=== PATIENT | male | born 1950 | race Caucasian/White ===

== ENCOUNTER 2017-01-09 11:01 | Emergency (ER) | payer MEDICARE ==
[2017-01-09 12:29] VITALS: BP 189/101
--- NOTE | 2017-01-17 15:24 | UC ---
Casa Duarte Claudia, scribed for Sheyla Garcia MD on 01/09/17 at 1200 . Abdominal Pain Male HPI - HPI Summary HPI Summary: 66 year old male presents to the ED with intermittent episodic diffuse abd pain but increased tenderness to the LLQ, LUQ. Pt notes the pain as a cramping pain. Pt notes associated sx as constipation. He denies any fever chills, N/V/D. Pt notes sudden onset of pain about 6 days ago when he was awoken in the middle of the night. The sx have persisted and become more constant. Pt saw his PCP on which recommended Miralax and Prune Juice which have done little to alleviate his Sx. Pt did an enema at home last night with some relief however he was awoken at 0415 this am with the persistent pain. Pt tried to perform another enema this am with no results and no reliefs. Pt denies any loss of appetite. It is also noted that he has not taken his HTN Rx for the past two days. - History of Current Complaint Chief Complaint: UCAbdominalPain Stated Complaint: ABDOMINAL PAIN Time Seen by Provider: 01/09/17 11:53 Hx Obtained From: Patient Onset/Duration: Sudden Onset, Still Present Location: Diffuse Radiates: No Character: Cramping Aggravating Factor(s):: Nothing Alleviating Factor(s): Nothing Associated Signs And Symptoms: Positive: Constipation. Negative: Fever, Nausea , Vomiting - Allergies/Home Medications Allergies/Adverse Reactions: Allergies Allergy/AdvReac Type Severity Reaction Status Date / Time No Known Allergies Allergy Verified 01/12/17 11:37 Home Medications: Home Medications Bimatoprost 0.01% OPHTH (NF) [Lumigan 0.01% OPHTH (NF)] 1 drop DAILY 01/09/17 [ History Confirmed 01/12/17] Dorzolamide 2% OPTH (NF) [Trusopt 2% OPTH (NF)] 1 drop DAILY 01/09/17 [History Confirmed 01/12/17] PMH/Surg Hx/FS Hx/Imm Hx Previously Healthy: Yes Cardiovascular History Of: Reports: Hypertension Denies: Pacemaker/ICD - Surgical History Surgical History: None - Family History Known Family History: Positive: Hypertension - Social History Occupation: Employed Full-time Lives: With Family Alcohol Use: Daily Substance Use Type: Marijuana Smoking Status (MU): Former Smoker When Did the Patient Quit Smoking/Using Tobacco: several yrs ago Review of Systems Constitutional: Negative, Other - no fever chills Skin: Negative Eyes: Negative ENT: Negative Respiratory: Negative Cardiovascular: Negative Gastrointestinal: Abdominal Pain - diffuse abd tenderness, no focal r/g. + bs. Soft. No cvat, Other - constipation Genitourinary: Negative Motor: Negative Neurovascular: Negative Musculoskeletal: Negative Neurological: Negative Psychological: Negative All Other Systems Reviewed And Are Negative: Yes Physical Exam Triage Information Reviewed: Yes Appearance: Well-Nourished - uncomfortable during PE Vital Signs: Initial Vital Signs Temp 97.5 F 01/09/17 11:17 Pulse 55 01/09/17 11:17 Resp 18 01/09/17 11:17 BP 164/103 01/09/17 11:17 Pulse Ox 97 01/09/17 11:17 Vital Signs Reviewed: Yes Eye Exam: Normal ENT Exam: Normal Neck exam: Normal Respiratory Exam: Normal Respiratory: Positive: Chest non-tender, Lungs clear, Normal breath sounds Cardiovascular Exam: Normal Cardiovascular: Positive: RRR, No Murmur, Pulses Normal, Brisk Capillary Refill Abdominal Exam: Normal Abdomen Description: Positive: Nontender, No Organomegaly, Soft Musculoskeletal Exam: Normal Musculoskeletal: Positive: Strength Intact Neurological Exam: Normal Psychological Exam: Normal Skin Exam: Normal Abd Pain Male Course/Dx - Course Course Of Treatment: Reviewed urine dip with pt. D/w pt - reviewed the need for further eval and tx in ED. He expresses understanding and agreement. EMS encouraged, he declines. Will go to ED pov ([facility] for ems). I spoke with ED. - Differential Dx/Clinical Impression Provider Diagnoses: Acute abd pain Discharge - Discharge Plan Condition: Stable Disposition: AGAINST MEDICAL ADVICE Discharge Disposition Comment: Transferred to [facility] ED via car Referrals: Adolfo Ramirez MD [Primary Care Provider] - The documentation as recorded by the Casa lockwood Claudia accurately reflects the service I personally performed and the decisions made by me, Sheyla Garcia MD.
== END 2017-01-10 12:36 | disposition left against medical advice (07) ==
LOC: UCEAST 11:01
DX: R10.32 Left lower quadrant pain (principal); R10.12 Left upper quadrant pain; K59.00 Constipation, unspecified; F12.90 Cannabis use, unspecified, uncomplicated; Z87.891 Personal history of nicotine dependence
CPT/HCPCS: 81002; 87086; 99212; G0463

== ENCOUNTER 2017-01-09 12:50 | Emergency (ER) | payer MEDICARE ==
[2017-01-09] MEDS ORDERED: Ondansetron INJ* 2 MG/ML VIAL IV ONE (14:26)
[2017-01-09] MEDS ORDERED: NS 0.9% 1000 ML* 1,000 ML IV ONE (14:26)
[2017-01-09 14:38] LABS: Hematocrit 46 % (42-52); Hemoglobin 15.1 g/dl (14.0-18.0); Mean Corpuscular HGB Conc 33 g/dl (31-36); Mean Corpuscular Hemoglobin 29 pg (27-31); Mean Corpuscular Volume 88 fL (80-94); Mean Platelet Volume 9 um3 (7.4-10.4); Red Blood Count 5.18 10^6/ul (4.0-5.4); Red Cell Distribution Width 13 % (10.5-15); White Blood Count 11.1 10^3/ul (3.5-10.8)
[2017-01-09 14:53] LABS: Albumin 4.2 g/dL (3.2-5.2); BUN/Creatinine Ratio 14.4 (8-20); C Reactive Protein 34.29 mg/L (< 5.00); Calcium 9.3 mg/dL (8.6-10.3); EGFR African American 65.4 (>60); EGFR Non-African American 50.8 (>60); Potassium 3.4 mmol/L (3.5-5.0); Total Bilirubin 0.9 mg/dL (0.2-1.0); Total Protein 7.2 g/dL (6.4-8.9)
[2017-01-09] MEDS ORDERED: Iodixanol* (CONTRAST) 320 MG/ML 100 ML SDV IV ONE (15:03)
[2017-01-09 16:35] LABS: Urine Bacteria Absent (Absent); Urine Bilirubin Negative (Negative); Urine Glucose Negative (Negative); Urine Nitrite Negative (Negative)
--- NOTE | 2017-01-09 17:28 | RAD ---
CLINICAL HISTORY: Abdominal pain COMPARISON: None TECHNIQUE: Contrast enhanced CT examination of the abdomen and pelvis from the lung bases through the initial tuberosities. The patient received 100 mL Visipaque 320 intravenously prior to imaging.The patient received oral contrast as well prior to imaging. FINDINGS: VISUALIZED LUNG BASES: Pleural-based linear density at the left lower lobe and to a lesser extent the right lower lobe is most consistent with atelectasis. Otherwise the visualized lung bases are grossly clear. There is no pleural effusion. ABDOMEN AND PELVIS: The liver, spleen and adrenal glands are grossly normal in appearance. There is mild dilatation of the proximal portion of the main pancreatic duct up to 4 mm in diameter. This main pancreatic duct is seen to communicate with the common bile duct before making a junction with the second portion the duodenum. There is the appearance of a small accessory pancreatic duct (image 32 of 96). There are no suspicious pancreatic masses or surrounding inflammatory change of the ankle wrist. The gallbladder is normal. The right kidney is normal in appearance without focal mass, calcification or signs of hydronephrosis. At the proximal portion of the left ureter just beyond the ureteropelvic junction there is a 5 mm calcification (coronal image 55 of 116). At the mid-level ureter there is a more elongated calcification measuring 1 cm in length (image 45 of 96). There is moderate left-sided hydronephrosis and moderate perinephric stranding. There are at least 2 additional left ureteral calculi, the larger stone at the lower pole measuring 8 mm in greatest dimension. The delayed phase imaging shows no excretion of contrast in the left renal collecting system. The oral contrast has progressed as far as the ankle joint. The small and large bowel are not distended. The patient's normal appendix is identified in the right lower quadrant (coronal image 49 of 116). There is questionable and mild wall thickening of portions of the descending colon. Furthermore the distal colon appears to be filled with liquid stool. There is no gross retroperitoneal or mesenteric lymphadenopathy. The prostate gland measures 4.4 x 4.8 cm in the axial plane and 4.4 cm in the cephalocaudal projection and exhibits compression on the trigone of the urinary bladder. There are scattered coarse calcifications in the gland. The abdominal aorta and iliac arteries are normal in course and diameter. Degenerative changes include multilevel loss of intervertebral disc height involving the lower thoracic and lumbar spine as well as vacuum disc phenomenon at the lower lumbar spine.There are no sinister bone lesions. IMPRESSION: 1. There are 2 large renal calculi in the proximal and mid level left ureter measuring 5 and 10 mm, respectively, in greatest dimension with ipsilateral moderate hydronephrosis and perinephric stranding. Delayed phase imaging shows delayed excretion in the left kidney. 2. CT findings likely represent a bifid configuration of the pancreatic duct with a dominant duct of [place] drainage. If clinically relevant this can be further characterized with MRCP. 3. There is questionable thickening of the descending colon and the distal colon appears to be filled with liquid stool. 4. There are additional chronic and degenerative findings described in the body the report.
[2017-01-09] MEDS ORDERED: Ketorolac INJ* 30 MG/ML 1 ML VIAL IV PUSH ONE (17:34)
[2017-01-09] MEDS ORDERED: Polyethylene Glycol 3350 BTL* 238 GM BTL PO ONE (17:34)
[2017-01-09 17:35] VITALS: BP 161/87
[2017-01-09] MEDS ORDERED: Magnesium CITRATE* 300 ML BTL PO ONE (17:35)
[2017-01-09] MEDS ORDERED: Tamsulosin CAP* 0.4 MG PO ONE (17:38)
--- NOTE | 2017-01-09 18:05 | ED ---
Adina Duarte Michael, scribed for Elliott Gutierrez MD on 01/09/17 at 1418 . Abdominal Pain/Male - HPI Summary HPI Summary: 66 y/o male comes to the ED presenting with intermittent episodes of abd pain that started diffusely and has localized to the LLQ within the past 6 days. The pt reports that he has been constipated for the past 6 days, and his last BM was one day ago, which alleviated the pain until 0400 this morning. This the pain returned, the pt has not been able to alleviate the pain with fleet enema. He also c/o chills and denies fever and n/v/d. - History of Current Complaint Chief Complaint: EDAbdPain Stated Complaint: ABD PAIN Time Seen by Provider: 01/09/17 14:05 Hx Obtained From: Patient, Medical Records Onset/Duration: Sudden Onset, Still Present Timing: Intermittent Severity Initially: Moderate Severity Currently: Moderate Pain Intensity: 7 Pain Scale Used: 0-10 Numeric Location: Discrete At: LLQ Radiates: No Aggravating Factor(s): Nothing Alleviating Factor(s): Nothing Associated Signs And Symptoms: Positive: Other - chills. Negative: Fever, Nausea, Vomiting, Diarrhea - Allergies/Home Medications Allergies/Adverse Reactions: Allergies Allergy/AdvReac Type Severity Reaction Status Date / Time No Known Allergies Allergy Verified 01/09/17 11:14 PMH/Surg Hx/FS Hx/Imm Hx Cardiovascular History: Reports: Hx Hypertension Denies: Hx Pacemaker/ICD Sensory History: Denies: Hx Hearing Aid Psychiatric History: Denies: Hx Panic Disorder Infectious Disease History: No Infectious Disease History: Denies: Hx Clostridium Difficile, Hx Hepatitis, Hx Human Immunodeficiency Virus (HIV), Hx of Known/Suspected MRSA, Hx Shingles, Hx Tuberculosis, Hx Known/ Suspected VRE, Hx Known/Suspected VRSA, History Other Infectious Disease, Traveled Outside the [place] in Last 30 Days - Family History Known Family History: Positive: None Family History: pt denies a significant FHx - Social History Occupation: Employed Full-time Lives: With Family Alcohol Use: Daily Substance Use Type: Reports: Marijuana Smoking Status (MU): Former Smoker Review of Systems Positive: Chills. Negative: Fever Positive: Abdominal Pain. Negative: Vomiting, Diarrhea, Nausea All Other Systems Reviewed And Are Negative: Yes Physical Exam - Summary Physical Exam Summary: VITAL SIGNS: Reviewed. GENERAL: Patient is a well developed and nourished male who is lying comfortable in the stretcher. Patient is not in any acute respiratory distress. HEAD AND FACE: Normocephalic and atraumatic. EYES: PERRLA, EOMI x 2, No injected conjunctiva. EARS: Hearing grossly intact. Ear canals and tympanic membranes are WNL. MOUTH: Oropharynx within normal limits. NECK: Supple, trachea is midline, no adenopathy, no JVD. CHEST: Symmetric, no tenderness at palpation LUNGS: Clear to auscultation bilaterally. No wheezing or crackles. CVS: RRR,, S1 and S2 present, no murmurs or gallops appreciated. ABDOMEN: Soft, Positive LLQ tenderness. No signs of distention. Positive bowel sounds. No rebound no guarding, and no masses palpated. No abdominal bruit or pulsations. EXTREMITIES: FROM in all major joints, no edema, no cyanosis or clubbing. NEURO: Alert and oriented x 3. No acute neurological deficits. Speech is normal. SKIN: Dry and warm Triage Information Reviewed: Yes Vital Signs On Initial Exam: Initial Vitals Temp Pulse Resp BP Pulse Ox 98.3 F 57 16 183/104 98 01/09/17 12:51 01/09/17 12:51 01/09/17 12:51 01/09/17 12:51 01/09/17 12:51 Vital Signs Reviewed: Yes Diagnostics - Vital Signs Vital Signs Temp Pulse Resp BP Pulse Ox 01/09/17 14:10 99.1 F 54 16 172/95 97 01/09/17 12:51 98.3 F 57 16 183/104 98 - Laboratory Lab Results: Lab Results 01/09/17 Range/Units 14:25 WBC 11.1 H (3.5-10.8) 10^3/ul RBC 5.18 (4.0-5.4) 10^6/ul Hgb 15.1 (14.0-18.0) g/dl Hct 46 (42-52) % MCV 88 (80-94) fL MCH 29 (27-31) pg MCHC 33 (31-36) g/dl RDW 13 (10.5-15) % Plt Count 156 (150-450) 10^3/ul MPV 9 (7.4-10.4) um3 Neut % (Auto) 79.5 (38-83) % Lymph % (Auto) 8.3 L (25-47) % [place] % (Auto) 11.1 H (1-9) % Eos % (Auto) 0 (0-6) % Baso % (Auto) 1.1 (0-2) % Absolute Neuts (auto) 8.8 H (1.5-7.7) 10^3/ul Absolute Lymphs (auto) 0.9 L (1.0-4.8) 10^3/ul Absolute Monos (auto) 1.2 H (0-0.8) 10^3/ul Absolute Eos (auto) 0 (0-0.6) 10^3/ul Absolute Basos (auto) 0.1 (0-0.2) 10^3/ul Absolute Nucleated RBC 0.01 10^3/ul Nucleated RBC % 0 Result Diagrams: 01/09/17 14:25 01/09/17 14:25 Lab Statement: Any lab studies that have been ordered have been reviewed, and results considered in the medical decision making process. - CT CT ABD/PEL CT Interpretation: Positive (See Comments) - 1. There are 2 large renal calculi in the proximal and mid level left ureter measuring 5 and 10 mm, respectively, in greatest dimension with ipsilateral moderate hydronephrosis and perinephric stranding. Delayed phase imaging shows delayed excretion in the left kidney. 2. CT findings likely represent a bifid configuration of the pancreatic duct with a dominant duct of [place] drainage. If clinically relevant this can be further characterized with MRCP. 3. There is questionable thickening of the descending colon and the distal colon appears to be filled with liquid stool. 4. There are additional chronic and degenerative findings described in the body the report. CT Interpretation Completed By: Radiologist - EKG EK EKG Rhythm: Sinus Bradycardia - 53 bpm EKG Interpretation: no st elevation Re-Evaluation - Re-Evaluation 1 Re-Evaluation Time: 18:02 Change: Improved Comment: Discussing results. Pt stated feeling much better. Will f/u with urology. Abdominal Pain Fem Course/Dx - Course Assessment/Plan: 66 y/o male comes to the ED presenting with intermittent episodes of abd pain that started diffusely and has localized to the LLQ within the past 6 days. The pt reports that he has been constipated for the past 6 days , and his last BM was one day ago, which alleviated the pain until 0400 this morning. This the pain returned, the pt has not been able to alleviate the pain with fleet enema. He also c/o chills and denies fever and n/v/d. Blood work shows an increased WBCs 11.1 w/o bands, Potassium 3.4, creatinine 1.39 and glucose 115. CRP 34.2 and UA negative for UTI. Abdominal and Pelvic CT IMPRESSION: 1. There are 2 large renal calculi in the proximal and mid level left ureter measuring 5 and 10 mm, respectively, in greatest dimension with ipsilateral moderate hydronephrosis and perinephric stranding. Delayed phase imaging shows delayed excretion in the left. kidney. 2. CT findings likely represent a bifid configuration of the pancreatic duct with a dominant duct of [place] drainage. If clinically relevant this can be further. characterized with MRCP. 3. There is questionable thickening of the descending colon and the distal colon appears to be filled with liquid stool. 4. There are additional chronic and degenerative findings described in the body the report. In the Ed course he was given IV fluids. He was given toradol and flomax for the kidney stones . He was given miralax, magnesium citrate and lactulose for the constipation to take at home if needed. He reports he will needed since he has not havea good BM in the last 7 days. After medication patient is feeling better. He reports no pain. He will be given prescriptions for pain medication and f/u with PMD and Urology. I discussed all the findings and test results with the patient. Patient was instructed to return to the emergency room immediately if any of the symptoms return or worsens. Plan of care was discussed with the patient and understands and agrees. All questions were answered at patient satisfaction. There were no further complaints or concerns. P/E: Lungs: CTA B/L. Good air exchange. No wheezing or crackles heard. CVS: S1 and S2 present. No murmurs appreciated. Patient is alert and oriented x 3. Patient is hemodynamically stable. Patient will be discharged home with follow up PMD in the next 2-3 days - Diagnoses Differential Diagnosis/HQI/PQRI: Bowel Obstruction, Constipation, Diverticulitis , Pancreatitis, Ureteral Stone Provider Diagnoses: Constipation, Kidney stones Discharge - Discharge Plan Condition: Stable Disposition: HOME Prescriptions: Ondansetron ODT TAB* [Zofran Odt TAB*] 4 mg PO Q6H PRN #10 tab.odt PRN Reason: Vomiting Tamsulosin CAP* [Flomax CAP*] 0.4 mg PO DAILY #10 cap oxyCODONE/Acetamin 5/325 MG* [Percocet 5/325 TAB*] 1 tab PO Q6H PRN #12 tab MDD max 4 tabs / day PRN Reason: Pain Patient Education Materials: Oxycodone/Acetaminophen (By mouth), Constipation ( ED), Kidney Stones (ED), Renal Colic (ED) Referrals: Adolfo Ramirez MD [Primary Care Provider] - Jerad Spears MD [Medical Doctor] - As Soon As Possible Additional Instructions: Follow up with Dr. Spears, urology, as soon as possible. If you experience new or worsening symptoms, return to the Emergency Department. The documentation as recorded by the Adina lockwood Michael accurately reflects the service I personally performed and the decisions made by , Elliott Gutierrez MD.
== END 2017-01-09 18:00 | disposition home or self-care (01) ==
LOC: ED 12:50
DX: K59.00 Constipation, unspecified (principal); N20.0 Calculus of kidney; R10.32 Left lower quadrant pain; Z87.891 Personal history of nicotine dependence
CPT/HCPCS: 36415; 74177; 80053; 81003; 81015; 82150; 83605; 83690; 85025; 86140; 93005; 96374; 96375; 99283; A9270-GY; J1885; J2405; Q9967

== ENCOUNTER 2017-01-12 11:29 | Day surgery (SDC) | payer MEDICARE ==
--- NOTE | 2017-01-11 17:03 | HP ---
DATE OF ADMISSION: 01/12/2017 - [facility] AGE: 66-year-old male. ADMITTING DIAGNOSES: 1. Left hydronephrosis. 2. Left ureteral calculi. 3. Left renal calculi. PLANNED PROCEDURE: Left ureteroscopy, possible laser and stent insertion (to be followed in the near future by shockwave lithotripsy). SURGEON: Dr. Fabio Hermosillo. HISTORY OF PRESENT ILLNESS: Toy Castaneda is a 66-year-old gentleman who had been evaluated in the emergency room with left flank pain and nausea. CT scan had revealed multiple left-sided calculi, including two calculi in the left ureter and two in the left kidney, along with left-sided hydronephrosis. He was started on Flomax 0.4 mg a day and continues to have episodic left flank pain. A follow-up ultrasound in my office revealed persistent left hydronephrosis with evidence of complete obstruction of the left ureter. He is being brought in for urgent left ureteroscopy and stent insertion, probably to be followed in the near future by shockwave lithotripsy of the additional left renal calculi. PAST MEDICAL HISTORY: Significant for: 1. Hypertension. 2. Lumbar stenosis. PAST SURGICAL HISTORY: Negative. MEDICATIONS ON ADMISSION: 1. Metoprolol 50 mg a day. 2. Amiloride 5 mg a day. 3. Amlodipine 5 mg daily. 4. Propecia 1.25 mg daily. 5. Aspirin 81 mg daily. 6. Eye drops. ALLERGIES: No known drug allergies. SMOKING HISTORY: He is a former smoker who quit 15 years ago and had an approximately 20 to 25 year smoking history prior to that. REVIEW OF SYSTEMS: He denies any chest pain or shortness of breath. There is no history of diabetes mellitus or any other major systemic illness. He is fairly active. PHYSICAL EXAMINATION GENERAL: Pleasant, middle-aged gentleman. VITAL SIGNS: Blood pressure 120/80, pulse 55 per minute, temperature 97.8, oxygen saturation 98 percent on room air. CARDIOVASCULAR: Regular rate and rhythm. S1, S2. LUNGS: Clear bilaterally. ABDOMEN: Soft with left flank tenderness. IMPRESSION: Wsemn-[id number]-cdmj-old gentleman with complete obstruction secondary to two calculi in the left ureter and two additional left renal calculi. PLAN: Planned procedure is left ureteroscopy, possible laser and stent insertion (to be followed in the near future by shockwave lithotripsy). CC: Dr. Adolfo Ramirez * [id number]/[facility] #: [id number] DAWN
[2017-01-12] MEDS ORDERED: Buffered Lidocaine 1% SYR 3ML* 3 ML/SYR SYRINGE INTRADERM ONE (12:08)
[2017-01-12] MEDS ORDERED: Famotidine IV* 10 MG/ML 2 ML (20 mg) IV ONE (12:08)
[2017-01-12] MEDS ORDERED: Famotidine IV* 10 MG/ML 2 ML (20 mg) ONE (12:11)
[2017-01-12] MEDS ORDERED: Gentamicin ADULT (*) 40 MG/ML VIAL ONE (12:24)
[2017-01-12] MEDS ORDERED: cefTRIAXone(*) 2 GM ADDV.VIAL IVPB ONE (12:25)
[2017-01-12] MEDS ORDERED: Midazolam* 1 MG/ML 5 ML VIAL (5 MG) ONE (12:29)
[2017-01-12] MEDS ORDERED: fentaNYL* 50 MCG/ML 2 ML VIAL (100 MCG VIAL) ONE (12:29)
[2017-01-12] MEDS ORDERED: KETAMINE HCL* 50 MG/ML 10 ML VIAL ONE (12:29)
[2017-01-12] MEDS ORDERED: Iohexol 180 (CONTRAST) 10 ML SDV IV ONE (12:44)
[2017-01-12] MEDS ORDERED: Dexamethasone IV* 4 MG/ML 1 ML (4 MG) ONE (13:29)
[2017-01-12] MEDS ORDERED: Ondansetron INJ* 2 MG/ML VIAL ONE (13:29)
[2017-01-12] MEDS ORDERED: Metoprolol Tartrate IV* 1 MG/ML 5 ML VIAL ONE (13:29)
[2017-01-12] MEDS ORDERED: Lidocaine 2% PF * 5 ML VIAL ONE (13:29)
[2017-01-12] MEDS ORDERED: Propofol* 10 MG/ML 20 ML BTL IV PUSH ONE (13:29)
[2017-01-12] MEDS ORDERED: fentaNYL* 50 MCG/ML 2 ML VIAL (100 MCG VIAL) IV PRN (14:15)
[2017-01-12] MEDS ORDERED: PROCHLORPERAZINE INJ 5 MG/ML 2 ML VIAL IV PRN (14:15)
[2017-01-12] MEDS ORDERED: oxyCODONE/Acetamin 5/325 MG* TAB PO PRN (14:15)
--- NOTE | 2017-01-12 14:38 | RAD ---
Amended report to correct patient account number. INDICATION: Left stent insertion. COMPARISON: Correlation is made with a prior CT of the abdomen and pelvis from January 09, 2017. TECHNIQUE: 10 seconds of intermittent fluoroscopic guidance were provided and 6 spot films of the abdomen were centered on the left side. FINDINGS: There is partial opacification of the left renal collecting system. Subsequently there is placement of a double-J stent catheter on the left side which demonstrates normal course. IMPRESSION: INTRAOPERATIVE CONTROL FILMS. CPT II Codes: 6045F MTDD
[2017-01-12] MEDS ORDERED: Tamsulosin CAP* 0.4 MG ONE (14:55)
[2017-01-12 15:25] VITALS: BP 149/100
--- NOTE | 2017-01-12 16:07 | RAD ---
INDICATION: Left-sided nephrolithiasis COMPARISON: CT January 09, 2017 TECHNIQUE: A single view of the abdomen is submitted. FINDINGS: Bones: There are no acute bony findings. Soft tissues: The soft tissues appear normal. The psoas margins are sharp. Bowel gas pattern: Normal Calcifications: There are multiple left renal calculi as described on the recent CT examination.. Other: Left ureteral stent in expected position. IMPRESSION: LEFT-SIDED NEPHROLITHIASIS. LEFT URETERAL STENT IN EXPECTED POSITION.
--- NOTE | 2017-01-13 14:13 | OP ---
DATE OF OPERATION: 01/12/17 - SDS DATE OF : [birth year] - AGE: 66 years, Male. SURGEON: Fabio Hermosillo MD ANESTHESIOLOGIST: Dr. Garner. ANESTHESIA: General. PRE-OP DIAGNOSES: 1. Left hydronephrosis. 2. Left ureteral calculi. 3. Left renal calculi. POST-OP DIAGNOSES: 1. Left hydronephrosis. 2. Left ureteral calculi. 3. Left renal calculi. 4. Prostate enlargement. OPERATIVE PROCEDURE: Cystoscopy, left retrograde pyelogram, left ureteroscopy, laser lithotripsy of left ureteral calculi and removal of calculus fragments, and and left stent insertion. COMPLICATIONS: None. STENT USED: 8-[place] stent, left ureter. INDICATIONS: Toy Castaneda is a 66-year-old gentleman who was evaluated for left flank pain. He was noted to have 2 obstructing calculi in the left ureter in addition to 2 calculi in the left kidney. He is now being brought in for management of the ureteral calculi and will require lithotripsy at a later date for the renal calculi. FINDINGS: 1. Normal-appearing urethra. 2. Markedly enlarged vascular prostate with a large median lobe component. 3. Normal-appearing bladder. 4. Left hydronephrosis with 2 calculi in left proximal ureter. DESCRIPTION OF PROCEDURE: After induction of general anesthesia, the patient was placed in dorsal lithotomy position. Sequential compression devices were in place and functioning. Initial cystoscopy revealed a normal-appearing urethra, a significantly enlarged prostate with a predominant median lobe component. The bladder was unremarkable. A guidewire was introduced into the left ureter. Retrograde pyelogram revealed left hydronephrosis. A 6-[place] semi -rigid ureteroscope was introduced under direct vision. The entire ureter was fairly narrow and the ureteroscope was advanced to the level of the proximal ureter just below the ureteropelvic junction, where 2 calculi were noted, one on top of the other. The more distal calculus was first fragmented with 550 micron Holmium laser and all of the fragments were removed. Next, the second calculus was grasped and brought lower into the ureter and then laser lithotripsy of this was also carried out. All the sizable fragments were removed and an 8- [place] stent was introduced and positioned under fluoroscopy with good proximal and distal positioning obtained. The plan is to bring him back sometime in the next couple of weeks for shock wave lithotripsy of the renal calculi prior to any stent removal. The patient tolerated the procedure satisfactorily and was transferred back to the recovery area in stable condition. CC: Adolfo Ramirez MD; Fabio Hermosillo MD * [id number]/[facility] #: [id number] MTDD
== END 2017-01-12 15:45 | disposition home or self-care (01) ==
LOC: OR 11:29
PROVIDERS: ATTEND Urology
DX: N13.2 Hydronephrosis with renal and ureteral calculous obstruction (principal); Z87.891 Personal history of nicotine dependence; I10 Essential (primary) hypertension
CPT/HCPCS: 74000; 74420; 82365; 88300; C1876; J0696; J1100; J1580; J2250; J2405; J2704; J3010; J3490

== ENCOUNTER 2017-01-24 10:22 | Day surgery (SDC) | payer MEDICARE ==
[~2017-01-24 10:22] MED LIST: Buffered Lidocaine 1% SYR 3ML* 3 ML/SYR SYRINGE INTRADERM ONE; Dexamethasone IV* 4 MG/ML 1 ML (4 MG) IV SLOW PU ONE; DiMENhydriNATE IV* 50 MG/ML VIAL IV PUSH PRN; Famotidine IV* 10 MG/ML 2 ML (20 mg) IV ONE; Midazolam* 1 MG/ML 2 ML VIAL (2 MG) ONE; Ondansetron INJ* 2 MG/ML VIAL IV PRN; PROCHLORPERAZINE INJ 5 MG/ML 2 ML VIAL IV PRN; fentaNYL* 50 MCG/ML 2 ML VIAL (100 MCG VIAL) IV PRN; fentaNYL* 50 MCG/ML 2 ML VIAL (100 MCG VIAL) ONE
[2017-01-24] MEDS ORDERED: Dexamethasone IV* 4 MG/ML 1 ML (4 MG) ONE (10:46)
[2017-01-24] MEDS ORDERED: Famotidine IV* 10 MG/ML 2 ML (20 mg) ONE (10:47)
[2017-01-24] MEDS ORDERED: cefTRIAXone(*) 2 GM ADDV.VIAL IVPB ONE (10:47)
--- NOTE | 2017-01-24 11:02 | RAD ---
Indication: Shock wave lithotripsy Comparison is made with previous exam dated January 12, 2017. Flat plate of the abdomen demonstrates calcifications overlying the left kidney. Left ureteral stent is in place. Calcification is noted overlying the right sacral ala as well. Etiology of this is unclear. IMPRESSION: Left ureteral stent in place. Calcifications overlying the lower pole of the left kidney. There appears to BE increased calcifications in the lower pole of the left kidney when compared to 1517.
[2017-01-24] MEDS ORDERED: Propofol* 10 MG/ML 20 ML BTL IV PUSH ONE (12:45)
[2017-01-24] MEDS ORDERED: Glycopyrrolate IV* 0.2 MG/ML 1 ML VIAL ONE ×2 (12:45→13:22)
[2017-01-24] MEDS ORDERED: Lidocaine 2% PF * 5 ML VIAL ONE ×2 (12:45→13:01)
[2017-01-24] MEDS ORDERED: Ondansetron INJ* 2 MG/ML VIAL ONE (12:45)
[2017-01-24] MEDS ORDERED: Ketorolac INJ* 30 MG/ML 1 ML VIAL ONE (12:45)
[2017-01-24] MEDS ORDERED: HYDROmorphone INJ* 1 MG/ML CARPUJECT SYRINGE ONE (12:58)
[2017-01-24] MEDS ORDERED: Levalbuterol HFA INHALER* 1 PUFF MDI ONE (13:01)
[2017-01-24 14:38] VITALS: BP 145/99
--- NOTE | 2017-01-25 04:15 | OP ---
DATE OF OPERATION: 01/24/17 - [facility] DATE OF : 46 SURGEON: Fabio Hermosillo MD ANESTHESIOLOGIST: Dr. Skinner. ANESTHESIA: General. PRE-OP DIAGNOSIS: Left renal calculi. POST-OP DIAGNOSIS: Left renal calculi. OPERATIVE PROCEDURE: 1. Shockwave lithotripsy of left renal calculi. 2. Cystoscopy and left stent removal. COMPLICATIONS: None. POSTOPERATIVE CONDITION: Stable. INDICATIONS: Toy Castaneda is a 66-year-old gentleman who had been evaluated for obstructing left ureteral and renal calculi. He had undergone successful treatment of the ureteral calculi and stent insertion and is not being brought in for treatment of the left renal calculi and stent removal. DESCRIPTION OF PROCEDURE: After induction of general anesthesia, the patient was placed on the lithotripsy table in supine position. There appeared to be a cluster of calculi on the lower pole of the left kidney with a dominant calculus approximately 7 mm. Shockwave lithotripsy was commenced at a rate of 60 shocks per minute. After the initial 300 shocks, there was a pause in lithotripsy for several minutes in an effort to minimize any potential trauma to the kidney. Lithotripsy was then resumed and periodic imaging revealed good localization and fragmentation. A total of 1400 shocks were administered. Next, the patient was placed in dorsal lithotomy position, cystoscopy was performed. The stent was seen exiting from the left ureter and was removed intact without difficulty. The bladder was emptied. The patient tolerated the procedure satisfactorily and was transferred back to the recovery area in stable condition. CC: Adolfo Ramirez MD; Fabio Hermosillo MD * [id number]/[facility] #: [id number] MTDD
== END 2017-01-24 14:54 | disposition home or self-care (01) ==
LOC: OR 10:22
PROVIDERS: ATTEND Urology
DX: N20.0 Calculus of kidney (principal); I10 Essential (primary) hypertension; G47.33 Obstructive sleep apnea (adult) (pediatric); Z87.891 Personal history of nicotine dependence
CPT/HCPCS: 74000; A9270-GY; J0696; J1100; J1170; J1885; J2250; J2405; J2704; J3010

== ENCOUNTER 2018-07-10 07:03 | Day surgery (SDC) | payer MEDICARE ==
--- NOTE | 2018-06-30 19:09 | HP ---
CC: Dr. Adolfo Ramirez; Dr. Hermosillo * ADMITTING HISTORY AND PHYSICAL: DATE OF ADMISSION: 07/10/18 ADMITTING DIAGNOSIS: Left renal calculi. PLANNED PROCEDURE: Shock wave lithotripsy of left renal calculi. SURGEON: Dr. Hermosillo. HISTORY OF PRESENT ILLNESS: Toy Castaneda is a 67-year-old gentleman with a history of recurrent renal calculi. He had undergone ureteroscopy and laser lithotripsy and had successfully been treated for left ureteral and renal calculi in 2017. He was recently noted to have new left renal calculi and on the most recent ultrasound was noted to have 3 calculi, one measuring 6 mm in the upper pole and additional one measuring 5 mm in the mid pole and an 8-mm stone in the lower pole of the left kidney. He is now being brought in for shock wave lithotripsy. PAST MEDICAL HISTORY: Significant for hypertension and lumbar stenosis. MEDICATIONS: On admission: 1. Ramipril 5 mg a day. 2. Amiloride 5 mg a day. 3. Propecia 1 mg a day. 4. Aspirin 81 mg a day. 5. Eye drops. ALLERGIES: No known drug allergies. SOCIAL HISTORY: Smoking history: He is a former smoker with a [id number] smoking history, who quit about 15 years ago. PHYSICAL EXAMINATION GENERAL: Reveals a pleasant healthy-appearing gentleman. VITAL SIGNS: Blood pressure is 150/90, pulse 63 per minute, oxygen saturation 98% on room air. LUNGS: Clear bilaterally. CARDIOVASCULAR: Regular rate and rhythm. S1 and S2. ABDOMEN: Soft without masses. IMPRESSION: A 67-year-old gentleman with a history of recurrent renal calculi , who has recently been noted to have multiple left renal calculi. PLAN: Planned procedure is shock wave lithotripsy, left renal calculi. [id number]/[facility] #: [id number] [facility]
[~2018-07-10 07:03] MED LIST changes: +Buffered Lidocaine 0.9% SYRIN* 5 ML/SYR SYRINGE INTRADERM ONE; -Buffered Lidocaine 1% SYR 3ML* 3 ML/SYR SYRINGE INTRADERM ONE; -Dexamethasone IV* 4 MG/ML 1 ML (4 MG) IV SLOW PU ONE; -DiMENhydriNATE IV* 50 MG/ML VIAL IV PUSH PRN; +Metoclopramide TAB* 10 MG PO ONE; -Midazolam* 1 MG/ML 2 ML VIAL (2 MG) ONE; -Ondansetron INJ* 2 MG/ML VIAL IV PRN; -PROCHLORPERAZINE INJ 5 MG/ML 2 ML VIAL IV PRN; -fentaNYL* 50 MCG/ML 2 ML VIAL (100 MCG VIAL) IV PRN; -fentaNYL* 50 MCG/ML 2 ML VIAL (100 MCG VIAL) ONE
[2018-07-10] MEDS ORDERED: Famotidine IV* 10 MG/ML 2 ML (20 mg) ONE (07:49)
[2018-07-10] MEDS ORDERED: cefTRIAXone(*) 2 GM ADDV.VIAL IVPB ONE (07:50)
[2018-07-10] MEDS ORDERED: Metoclopramide TAB* 10 MG ONE (07:50)
[2018-07-10] MEDS ORDERED: Midazolam* 1 MG/ML 5 ML VIAL (5 MG) ONE (08:08)
[2018-07-10] MEDS ORDERED: Lidocaine 2% PF * 5 ML VIAL ONE (08:08)
[2018-07-10] MEDS ORDERED: fentaNYL* 50 MCG/ML 2 ML VIAL (100 MCG VIAL) ONE ×2 (08:08→10:41)
[2018-07-10] MEDS ORDERED: KETAMINE HCL* 50 MG/ML 10 ML VIAL ONE (08:08)
[2018-07-10] MEDS ORDERED: Ondansetron INJ* 2 MG/ML VIAL ONE (08:08)
[2018-07-10] MEDS ORDERED: Propofol* 10 MG/ML 20 ML BTL IV PUSH ONE (08:08)
[2018-07-10] MEDS ORDERED: Dexamethasone IV* 4 MG/ML 1 ML (4 MG) ONE (08:08)
[2018-07-10] MEDS ORDERED: Ketorolac INJ* 30 MG/ML 1 ML VIAL ONE (08:08)
--- NOTE | 2018-07-10 08:20 | RAD ---
HISTORY: shockwave lithotripsy COMPARISONS: March 10, 2018 VIEWS: Frontal views of the abdomen. FINDINGS: BOWEL: There is a nonspecific bowel gas pattern, with nondilated small bowel gas noted. There is a large amount of stool within the colon. CALCULI: Again noted are calculi overlying the left renal parenchymal shadow measuring up to 0.5 cm, stable. BONES AND SOFT TISSUES: There is a scoliotic curvature of the spine. Degenerative changes are noted. OTHER FINDINGS: The lung bases are clear. There is no subphrenic gas. IMPRESSION: STABLE LEFT NEPHROLITHIASIS
[2018-07-10] MEDS ORDERED: Naloxone* 0.4 MG/ML 1 ML VIAL IV PRN (10:02)
[2018-07-10] MEDS ORDERED: Ondansetron INJ* 2 MG/ML VIAL IV PRN (10:02)
[2018-07-10] MEDS ORDERED: oxyCODONE/Acetamin 5/325 MG* TAB PO PRN (10:02)
[2018-07-10] MEDS ORDERED: fentaNYL* 50 MCG/ML 2 ML VIAL (100 MCG VIAL) IV PRN (10:02)
[2018-07-10] MEDS ORDERED: EPHEDrine (Pressors)* 50 MG/ML VIAL ONE (10:21)
[2018-07-10] MEDS ORDERED: Glycopyrrolate IV* 0.2 MG/ML 1 ML VIAL ONE (10:37)
[2018-07-10 12:51] VITALS: BP 127/80
--- NOTE | 2018-07-10 14:54 | OP ---
CC: Adolfo Ramirez MD; Fabio Hermosillo MD.* OPERATIVE REPORT: DATE OF OPERATION: 07/10/18 - [facility] DATE OF : 46 SURGEON: Fabio Hermosillo M.D. ANESTHESIOLOGIST: Dr. Fontana. ANESTHESIA: General PRE-OP DIAGNOSIS: Left renal calculi. POST-OP DIAGNOSIS: Left renal calculi. OPERATIVE PROCEDURE: Shock-wave lithotripsy of left renal calculi. COMPLICATIONS: None. POSTOPERATIVE CONDITION: Stable. INDICATIONS: Toy Castaneda is a 67-year-old gentleman with a history of recurrent renal calculi. He was recently seen in followup and noted to have multiple left renal calculi. He is now been brought in for shockwave lithotripsy. DESCRIPTION OF PROCEDURE: After induction of general anesthesia, the patient was placed on the lithotripsy table in supine position, there appear to be 3 calculi distributed between the upper mid and lower pole of the left kidney. The largest appeared to be in the lower pole and this was targeted with the shockwave lithotripsy at a rate of 60 shocks per minute, after the initial 300 shocks, there was a pause in lithotripsy for several minutes in an effort to minimize any potential trauma to the kidney. Lithotripsy was then resumed and a total of 2400 shocks were distributed between the 3 calculi. The last 400 shocks were done in a coupled fashion because of some ectopy noted by the anesthesiologist and this resolved after the coupling. The patient tolerated the procedure satisfactorily and was transferred back to recovery area in stable condition. [id number]/[facility] #: [id number] MTDD
== END 2018-07-10 13:01 | disposition home or self-care (01) ==
LOC: OR 07:03
PROVIDERS: ATTEND Urology
DX: N20.0 Calculus of kidney (principal); Z87.442 Personal history of urinary calculi; I10 Essential (primary) hypertension; Z87.891 Personal history of nicotine dependence; M48.061 Spinal stenosis, lumbar region without neurogenic claudication; G47.33 Obstructive sleep apnea (adult) (pediatric); N40.0 Benign prostatic hyperplasia without lower urinary tract symptoms
CPT/HCPCS: 74018; A9270-GY; J0696; J1100; J1885; J2250; J2405; J2704; J3010